=== PATIENT | female | born 1940 | race Caucasian/White ===

== ENCOUNTER 2021-03-01 02:33 | Inpatient (IN) ==
[2021-03-01 07:55] LABS: Basophils # 0.1 10*3/uL (0.0-0.2); Basophils % 0.5 % (0.0-0.8); Eosinophils % 0.1 % (0.00-10.9); Hematocrit 35.8 VOL% (35.7-47.0); Hemoglobin 10.6 GM/DL (12.0-16.0); Immature Granulocytes % 0.4 %; Immature Granulocytes Absolute 0.05 #; Lymphocytes # 1.2 10*3/uL (1.4-4.0); Lymphocytes % 9.2 % (21.3-54.2); Mean Corpuscular HGB Conc 29.6 GM/DL (32-36); Mean Corpuscular Volume 82.3 FL (87-102); Mean Platelet Volume 9.2 FL (9.6-12.0); Neutrophils % 87.8 % (38.7-73.9); Platelet Count 304 T/CUMM (130-400); Red Blood Count 4.35 MC/CUMM (3.8-5.5); Red Cell Distribution Width 14.8 % (9.3-17.3); White Blood Count 13.1 T/CUMM (4-12)
[2021-03-01 08:40] LABS: Albumin 3.1 G/DL (3.4-5.0); Bilirubin,Total 0.9 MG/DL (0.20-1.00); Calcium 9.3 MG/DL (8.5-10.1); Osmolality,Calculated 289.1 MOS/KG (273-304); Potassium 3.4 MMOL/L (3.5-5.1); Total Protein 7.5 G/DL (6.4-8.2)
[2021-03-01 08:52] LABS: Bacteria,Urine Occasional /HPF (Few); Bilirubin,Urine Negative (Negative); Blood, Urine Negative (Negative); Glucose,Urine (UA) Negative (Negative); Hyaline Casts,Urine 3 /LPF (0-3); Ketones,Urine 5 mg/dL (Negative); Mucus,Urine Occasional /LPF (Occasional); Nitrite,Urine Negative (Negative); Protein,Urine 30 MG/DL; RBC,Urine 5 /HPF (0-4); Squamous Epithelial Cell,Urine Occasional /HPF (0-10); Urine Appearance CLEAR (Clear); Urine Color Yellow (Yellow); Urine Specific Gravity 1.023 (1.001-1.035); Urine Urobilinogen < 2.0 EU/DL (<2.0)
[2021-03-01] MEDS ORDERED: FUROSEMIDE 100 MG/10 ML VIAL IV STA (09:15)
[2021-03-01] MEDS ORDERED: POTASSIUM CHLORIDE 20 MEQ TABLET PO PRN (09:52)
[2021-03-01] MEDS ORDERED: GLUCAGON 1 MG VIAL IM PRN ×2 (09:52)
[2021-03-01] MEDS ORDERED: DEXTROSE 50% 25 GM/50 ML SYRINGE IV PRN (09:52)
[2021-03-01] MEDS ORDERED: MAGNESIUM SULF RIDER 4 GM/100 ML PREMIX IV PRN (09:52)
[2021-03-01] MEDS ORDERED: MAGNESIUM SULF RIDER 2 GM/50 ML PREMIX IV PRN (09:52)
[2021-03-01] MEDS ORDERED: DEXTROSE 50% 25 GM/50 ML VIAL IV PRN (09:52)
[2021-03-01] MEDS: carvediloL 12.5 MG TABLET PO SCH ×2 (11:10→18:01)
[2021-03-01] MEDS: ASPIRIN EC 81 MG TABLET PO SCH (11:10)
[2021-03-01] MEDS: predniSONE 20 MG TABLET PO SCH (11:10)
[2021-03-01] MEDS: POTASSIUM CHLORIDE 20 MEQ TABLET PO SCH ×2 (11:10→21:33)
[2021-03-01] MEDS: PANTOPRAZOLE 40 MG TABLET PO SCH ×2 (11:10→21:34)
[2021-03-01] MEDS: INSULIN GLARGINE 100 UNIT/ML SUBCUT SCH (11:15)
[2021-03-01] MEDS: cefTRIAXone 1,000 MG in SODIUM CHLORIDE 0.9% 100 ML IV SCH (11:45)
[2021-03-01] MEDS: INSULIN LISPRO 100 UNIT/ML SUBCUT SCH ×2 (12:35→18:00)
[2021-03-01] MEDS: INSULIN REGULAR 100 UNIT/ML SUBCUT SCH ×3 (12:35→21:34)
[2021-03-01] MEDS ORDERED: ALBUTEROL 2.5 MG/3 ML NEB RESP TX SCH (13:00)
[2021-03-01] MEDS: metroNIDAZOLE INJ 500 MG/100 ML PREMIX IV SCH ×2 (13:15→21:34)
[2021-03-01] MEDS: ALBUTEROL/IPRATROPIUM 3 ML NEB RESP TX SCH ×2 (13:23→19:37)
[2021-03-01] MEDS: FUROSEMIDE 40 MG/4 ML VIAL IV SCH (18:01)
[2021-03-01] MEDS: ATORVASTATIN 20 MG TABLET PO SCH (21:33)
[2021-03-01] MEDS: HEPARIN 5,000 UNIT/1 ML VIAL SUBCUT SCH (21:42)
[2021-03-02] MEDS: ALBUTEROL/IPRATROPIUM 3 ML NEB RESP TX SCH ×4 (00:53→19:58)
[2021-03-02] MEDS: FUROSEMIDE 40 MG/4 ML VIAL IV SCH ×2 (02:03→08:57)
[2021-03-02] MEDS: metroNIDAZOLE INJ 500 MG/100 ML PREMIX IV SCH ×3 (04:10→20:41)
[2021-03-02 06:08] LABS: Basophils % 0.3 % (0.0-0.8); Immature Granulocytes % 0.9 %; Immature Granulocytes Absolute 0.13 #; Lymphocytes # 1.3 10*3/uL (1.4-4.0); Lymphocytes % 9.2 % (21.3-54.2); Mean Corpuscular Volume 80.2 FL (87-102); Mean Platelet Volume 9.2 FL (9.6-12.0); Neutrophils % 83.6 % (38.7-73.9); Platelet Count 255 T/CUMM (130-400); Red Blood Count 3.74 MC/CUMM (3.8-5.5); White Blood Count 14.6 T/CUMM (4-12)
[2021-03-02 06:19] LABS: Calcium 8.8 MG/DL (8.5-10.1); Potassium 3.6 MMOL/L (3.5-5.1)
[2021-03-02] MEDS: INSULIN REGULAR 100 UNIT/ML SUBCUT SCH ×4 (07:41→20:42)
[2021-03-02] MEDS: INSULIN LISPRO 100 UNIT/ML SUBCUT SCH ×3 (08:56→16:36)
[2021-03-02] MEDS: predniSONE 20 MG TABLET PO SCH (08:57)
[2021-03-02] MEDS: INSULIN GLARGINE 100 UNIT/ML SUBCUT SCH (08:57)
[2021-03-02] MEDS: POTASSIUM CHLORIDE 20 MEQ TABLET PO SCH ×2 (08:57→20:42)
[2021-03-02] MEDS: PANTOPRAZOLE 40 MG TABLET PO SCH ×2 (08:57→20:42)
[2021-03-02] MEDS: ASPIRIN EC 81 MG TABLET PO SCH (08:57)
[2021-03-02] MEDS: carvediloL 12.5 MG TABLET PO SCH ×2 (08:57→16:35)
[2021-03-02] MEDS: HEPARIN 5,000 UNIT/1 ML VIAL SUBCUT SCH ×2 (08:57→20:45)
[2021-03-02] MEDS: cefTRIAXone 1,000 MG in SODIUM CHLORIDE 0.9% 100 ML IV SCH (14:18)
[2021-03-02] MEDS ORDERED: FUROSEMIDE 40 MG/4 ML VIAL IV SCH (16:00)
[2021-03-02] MEDS: ATORVASTATIN 20 MG TABLET PO SCH (20:42)
[2021-03-03] MEDS: ALBUTEROL/IPRATROPIUM 3 ML NEB RESP TX SCH ×4 (00:50→19:46)
[2021-03-03] MEDS: metroNIDAZOLE INJ 500 MG/100 ML PREMIX IV SCH ×3 (03:22→21:28)
[2021-03-03 06:45] LABS: Basophils # 0.1 10*3/uL (0.0-0.2); Basophils % 0.4 % (0.0-0.8); Eosinophils % 0.1 % (0.00-10.9); Hematocrit 31.2 VOL% (35.7-47.0); Hemoglobin 9.3 GM/DL (12.0-16.0); Immature Granulocytes % 0.7 %; Immature Granulocytes Absolute 0.12 #; Lymphocytes % 11.2 % (21.3-54.2); Mean Corpuscular HGB Conc 29.8 GM/DL (32-36); Mean Corpuscular Volume 82.1 FL (87-102); Mean Platelet Volume 9.5 FL (9.6-12.0); Monocytes % 7.5 % (1.7-12.7); Neutrophils % 80.1 % (38.7-73.9); Platelet Count 283 T/CUMM (130-400); White Blood Count 17.8 T/CUMM (4-12)
[2021-03-03 07:03] LABS: Calcium 8.4 MG/DL (8.5-10.1); Osmolality,Calculated 293.6 MOS/KG (273-304); Potassium 3.8 MMOL/L (3.5-5.1)
[2021-03-03] MEDS: INSULIN LISPRO 100 UNIT/ML SUBCUT SCH (08:03)
[2021-03-03] MEDS: INSULIN REGULAR 100 UNIT/ML SUBCUT SCH ×4 (08:03→21:48)
[2021-03-03] MEDS: INSULIN GLARGINE 100 UNIT/ML SUBCUT SCH (08:39)
[2021-03-03] MEDS: predniSONE 20 MG TABLET PO SCH (08:56)
[2021-03-03] MEDS: carvediloL 12.5 MG TABLET PO SCH ×2 (08:56→17:19)
[2021-03-03] MEDS: ASPIRIN EC 81 MG TABLET PO SCH (08:56)
[2021-03-03] MEDS: PANTOPRAZOLE 40 MG TABLET PO SCH ×2 (08:56→21:28)
[2021-03-03] MEDS: HEPARIN 5,000 UNIT/1 ML VIAL SUBCUT SCH ×2 (08:57→21:28)
[2021-03-03] MEDS: POTASSIUM CHLORIDE 20 MEQ TABLET PO SCH ×2 (08:57→21:29)
[2021-03-03] MEDS ORDERED: FUROSEMIDE 40 MG/4 ML VIAL IV SCH (09:00)
[2021-03-03] MEDS: cefTRIAXone 1,000 MG in SODIUM CHLORIDE 0.9% 100 ML IV SCH (11:56)
[2021-03-03] MEDS ORDERED: TUBERCULIN SKIN TEST 0.1 ML SYRINGE INTRADERM ONE (15:57)
[2021-03-03] MEDS: ATORVASTATIN 20 MG TABLET PO SCH (21:28)
[2021-03-04] MEDS: ALBUTEROL/IPRATROPIUM 3 ML NEB RESP TX SCH ×3 (00:50→12:54)
[2021-03-04] MEDS: metroNIDAZOLE INJ 500 MG/100 ML PREMIX IV SCH (04:58)
[2021-03-04 06:08] LABS: Basophils # 0.1 10*3/uL (0.0-0.2); Basophils % 0.3 % (0.0-0.8); Eosinophils % 0.1 % (0.00-10.9); Hematocrit 32.2 VOL% (35.7-47.0); Hemoglobin 9.4 GM/DL (12.0-16.0); Immature Granulocytes % 0.8 %; Immature Granulocytes Absolute 0.13 #; Lymphocytes # 1.4 10*3/uL (1.4-4.0); Lymphocytes % 8.2 % (21.3-54.2); Mean Corpuscular HGB Conc 29.2 GM/DL (32-36); Mean Corpuscular Volume 83.4 FL (87-102); Mean Platelet Volume 9.4 FL (9.6-12.0); Monocytes % 8.9 % (1.7-12.7); Neutrophils % 81.7 % (38.7-73.9); Platelet Count 278 T/CUMM (130-400); Red Blood Count 3.86 MC/CUMM (3.8-5.5); Red Cell Distribution Width 15.1 % (9.3-17.3); White Blood Count 16.5 T/CUMM (4-12)
[2021-03-04 06:25] LABS: Calcium 9.2 MG/DL (8.5-10.1); Osmolality,Calculated 294.3 MOS/KG (273-304); Potassium 4.6 MMOL/L (3.5-5.1)
[2021-03-04 08:15] VITALS: BP 127/72
[2021-03-04] MEDS ORDERED: FUROSEMIDE 40 MG TABLET PO SCH (09:00)
[2021-03-04] MEDS ORDERED: predniSONE 20 MG TABLET PO SCH (09:00)
[2021-03-04] MEDS: ASPIRIN EC 81 MG TABLET PO SCH (09:14)
[2021-03-04] MEDS: INSULIN GLARGINE 100 UNIT/ML SUBCUT SCH (09:14)
[2021-03-04] MEDS: PANTOPRAZOLE 40 MG TABLET PO SCH (09:14)
[2021-03-04] MEDS: INSULIN REGULAR 100 UNIT/ML SUBCUT SCH ×2 (09:14→12:09)
[2021-03-04] MEDS: carvediloL 12.5 MG TABLET PO SCH (09:14)
[2021-03-04] MEDS: POTASSIUM CHLORIDE 20 MEQ TABLET PO SCH (09:14)
[2021-03-04] MEDS: HEPARIN 5,000 UNIT/1 ML VIAL SUBCUT SCH (09:20)
[2021-03-04] MEDS: cefTRIAXone 1,000 MG in SODIUM CHLORIDE 0.9% 100 ML IV SCH (12:09)
== END 2021-03-04 14:03 | disposition home health service (06) | DRG 291 ==
LOC: N.ED 02:33 → N.EDINP 09:16 → SUATTDRO 09:16 → N.3E 15:51
PROVIDERS: ADMIT Internal Medicine; ATTEND Internal Medicine